=== PATIENT | female | born 1990 | race Caucasian/White ===

== ENCOUNTER 2017-08-02 17:33 | Emergency (ER) | payer OTHER ==
[2017-08-02 17:50] VITALS: BMI 22.3
[2017-08-02 17:51] VITALS: BP 129/77; PULSE 89; RESP 18; TEMP 98.7; O2SAT 97
[2017-08-02 18:25] LABS: HCG,QUALITATIVE URINE POSITIVE (NEGATIVE)
[2017-08-02 18:30] LABS: SQUAMOUS EPITHIAL 15 /hpf (0-5); URINE BACTERIA RARE (<OCC); URINE BILIRUBIN NEGATIVE (NEGATIVE); URINE BLOOD NEGATIVE (NEGATIVE); URINE CLARITY Hazy (Clear); URINE COLOR Yellow (YELLOW); URINE GLUCOSE (UA) NORMAL (Normal); URINE LEUKOCYTE ESTERASE 2+ Leu/uL (Negative); URINE PROTEIN NEGATIVE (NEGATIVE); URINE UROBILINOGEN NORMAL mg/dL (0.2-1.0)
--- NOTE | 2017-08-02 18:48 | C.PDOC ---
History Of Present Illness 27 year old female presents to ED with complaints of vaginal itching, burning and clumpy white discharge for few days. She knows it is yeast infection because she usually gets them. She tried using Monistat without relief. She states it usually does not work and needs pill. Additionally patient reports recently found out she is and has yet to schedule appointment. She is irregular and last menses 04/07/17, A2. Denies any pelvic pain, vaginal bleeding, abdominal pain, dysuria. Time Seen by Provider: 08/02/17 18:03 Chief Complaint (Nursing): Female Genitourinary History Per: Patient History/Exam Limitations: no limitations Onset/Duration Of Symptoms: Hrs Current Symptoms Are (Timing): Still Present Quality Of Discomfort: "Pain" Additional History Per: Patient Abnormal Vaginal Bleeding: No Past Medical History Reviewed: Historical Data, Nursing Documentation, Vital Signs Vital Signs: Last Vital Signs Temp 98.7 F 08/02/17 17:51 Pulse 89 08/02/17 17:51 Resp 18 08/02/17 17:51 BP 129/77 08/02/17 17:51 Pulse Ox 97 08/02/17 20:44 - Medical History PMH: No Chronic Diseases Surgical History: No Surg Hx Family History: States: Unknown Family Hx - Social History Hx Alcohol Use: No Hx Substance Use: No - Immunization History Hx Tetanus Toxoid Vaccination: No Hx Influenza Vaccination: No Review Of Systems Gastrointestinal: Negative for: Abdominal Pain Genitourinary: Positive for: Vaginal Discharge (white, clumpy ), Other (vaginal itching, burning ). Negative for: Dysuria, Vaginal Bleeding, Pelvic Pain Physical Exam - Physical Exam Appears: Non-toxic, No Acute Distress Skin: Normal Color, Warm, Dry Head: Atraumatic, Normacephalic Eye(s): bilateral: Normal Inspection Oral Mucosa: Moist Neck: Supple Chest: Symmetrical, No Deformity, No Tenderness Cardiovascular: Rhythm Regular Respiratory: Normal Breath Sounds Gastrointestinal/Abdominal: Soft, No Tenderness, No Guarding, No Rebound Pelvic: Other (white patches and discharge to vulva and vagina ) Extremity: Normal ROM Neurological/Psych: Oriented x3, Normal Speech, Normal Cognition ED Course And Treatment O2 Sat by Pulse Oximetry: 97 (on RA) Pulse Ox Interpretation: Normal Medical Decision Making Medical Decision Making: Impression: 27 year old female with vaginal itching, burning and discharge Plan: * Urinalysis * Diflucan PO Progress: On re-exam, patient is resting comfortably, showing no signs of distress and is stable for discharge. Patient is advised to follow up with her [facility] within 1- 2 days for further evaluation. 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 - Scribe Statement The provider has reviewed the documentation as recorded by the Scribe (Juju Arredondo) All medical record entries made by the Scribe were at my direction and personally dictated by me. I have reviewed the chart and agree that the record accurately reflects my personal performance of the history, physical exam, medical decision making, and the department course for this patient. I have also personally directed, reviewed, and agree with the discharge instructions and disposition.
== END 2017-08-02 18:57 | disposition home or self-care (01) ==
LOC: C.ER 17:33
DX: B37.3 Candidiasis of vulva and vagina (principal)